=== PATIENT | female | born 1945 | race Caucasian/White ===

== ENCOUNTER → 2017-10-30 | Outpatient (CLI) | payer MEDICARE, OTHER | END | disposition home or self-care (01) | LOC: MMGSC 15:50 | PROVIDERS: ATTEND Family Medicine | DX: E03.9 Hypothyroidism, unspecified (principal) | CPT/HCPCS: 36415; 84439; 84443 ==

== ENCOUNTER → 2018-01-14 | Outpatient (CLI) | payer MEDICARE, OTHER | END | disposition home or self-care (01) | LOC: MMGSC 15:07 | PROVIDERS: ATTEND Family Medicine | DX: N39.0 Urinary tract infection, site not specified (principal) | CPT/HCPCS: 87077; 87086; 87186 ==

== ENCOUNTER → 2019-08-05 | Outpatient (CLI) | payer MEDICARE, OTHER ==
--- NOTE | 2019-08-05 22:35 | MR ---
MRI CERVICAL SPINE: CLINICAL HISTORY: Cervical radiculopathy per order. Headache with neck pain and numbness causing pain or weakness into left arm and fingers with history of prior surgery per patient. TECHNIQUE: Multiplanar, multisequence imaging of the cervical spine is performed without and with IV contrast, 6 cc of gadolinium was given intravenously. COMPARISON: None. FINDINGS: Sagittal images of the cervical spine show the craniocervical junction to appear within nor mal limits. The cervical and upper thoracic spinal cord is normal in course, caliber, and signal. Th ere is artifact from prior fusion surgery C5-C7 levels with grade 1 anterolisthesis C7 on T1. There i s mild to moderate disc space narrowing most prominent posteriorly C7-T1 level. There is prominent an terior inferior spur C4 vertebra. The vertebral body heights are normal. The bone marrow signal int ensity is within normal limits. No suspicious enhancement is seen. Dextroconvex scoliotic curvature c entered upper thoracic spine is present on coronal images. There are small posterior disc herniations in the upper thoracic spine on sagittal images 6 and 7 noted. Axial images at the C2-C3 level is felt within normal limits. Axial images at the C3-C4 level show uncovertebral facet degenerative changes with broad-based centra l disc protrusion effacing the anterior thecal sac, there is mild to moderate left greater than right bilateral neural foraminal narrowing. Axial images at C4-C5 level showed broad based left paracentral disc protrusion and uncovertebral fac et degenerative changes with effacement of the left anterolateral thecal sac and asymmetric moderate left-sided neural foraminal narrowing. Axial images at the C5-C6 level show artifact from surgical change otherwise focus within normal limi ts. Axial images at the C6-C7 level show mild right greater than left bilateral neural foraminal narrowin g. Artifact from surgical change. Axial images at the C7-T1 level show spondylolisthesis with left paracentral disc protrusion effacing anterolateral thecal sac and artifact from surgical change otherwise are felt within normal limits. IMPRESSION: Postsurgical changes C5-C7 level. C7-T1 spondylolisthesis and degenerative change. Additi onal multilevel degenerative changes as detailed above.
== END | disposition home or self-care (01) ==
LOC: RADMRIMAIN 14:58
PROVIDERS: ATTEND Family Medicine
DX: M43.13 Spondylolisthesis, cervicothoracic region (principal); M47.23 Other spondylosis with radiculopathy, cervicothoracic region; M47.22 Other spondylosis with radiculopathy, cervical region; Z98.1 Arthrodesis status
CPT/HCPCS: 72156; A9585

== ENCOUNTER 2022-10-31 11:56 | Emergency (ER) | payer MEDICARE, OTHER ==
[2022-10-31 12:38] VITALS: BP 124/66; PULSE 67; RESP 18; TEMP 97.4
--- NOTE | 2022-10-31 13:22 | US ---
EXAMINATION TYPE: US venous doppler duplex LE LT DATE OF EXAM: 10/31/2022 1:04 PM COMPARISON: NONE CLINICAL HISTORY: 77-year-old female pain/ no injury. pain left leg SIDE PERFORMED: left TECHNIQUE: The lower extremity deep venous system is examined utilizing real time linear array sonog lakisha with graded compression, doppler sonography and color-flow sonography. FINDINGS: VESSELS IMAGED: Common Femoral Vein Deep Femoral Vein Greater Saphenous Vein * Femoral Vein Popliteal Vein Small Saphenous Vein * Proximal Calf Veins (* superficial vessels) Left Leg: no evidence of DVT as visualized IMPRESSION: No evidence for DVT within the left lower extremity imaged from the groin to the upper calf.
== END 2022-10-31 16:30 | disposition left against medical advice (07) ==
LOC: EC 11:56
DX: Z53.21 Procedure and treatment not carried out due to patient leaving prior to being seen by health care provider (principal)
CPT/HCPCS: 99499

== ENCOUNTER 2024-08-31 17:18 | Emergency (ER) | payer MEDICARE ==
[2024-08-31 17:29] VITALS: RESP 18
--- NOTE | 2024-08-31 17:31 | ED ---
General Adult HPI - General Chief complaint: ENT Stated complaint: SOB Source: patient Mode of arrival: ambulatory Limitations: no limitations - History of Present Illness Initial comments: 79-year-old female presenting with chief complaint of "I just do not feel well". The last week she has been having chills, body aches, and a sore throat. She also admits to a nonproductive cough. No chest pain or difficulty breathing. Her voice is very hoarse today. States that she does feel generally weak, but she is still able to ambulate without assistance. No abdominal pain nausea or vomiting. No previous antibiotic therapy - Related Data Home Medications Medication Instructions Recorded Confirmed Albuterol Inhaler [Ventolin Hfa 1 - 2 puff INHALATION RT-Q4H PRN 03/17/22 03/17/22 Inhaler] Aspirin 81 mg PO DAILY@1200 03/17/22 03/17/22 Atorvastatin [Lipitor] 80 mg PO W/SUPPER 03/17/22 03/17/22 Fluticasone Propion/Salmeterol 2 puff INHALATION RT-BID 03/17/22 03/17/22 [Advair Hfa 230-21 Mcg Inhaler] Gabapentin [Neurontin] 300 mg PO DAILY PRN 03/17/22 03/17/22 Levothyroxine Sodium [Synthroid] 100 mcg PO DAILY@0600 03/17/22 03/17/22 Multivitamins, Thera [Multivitamin 1 tab PO DAILY@1200 03/17/22 03/17/22 (formulary)] Nitroglycerin Sl Tabs [Nitrostat] 0.4 mg SUBLINGUAL Q5M PRN 03/17/22 03/17/22 Venlafaxine HCl [Effexor] 75 mg PO DAILY 03/17/22 03/17/22 amLODIPine [Norvasc] 5 mg PO DAILY 03/17/22 03/17/22 clonazePAM [KlonoPIN] 0.5 mg PO HS PRN 03/17/22 03/17/22 Previous Rx's Medication Instructions Recorded Budesonide-Formot 160-4.5 Mcg 2 puff INHALATION RT-BID #1 each 03/19/22 [Symbicort 160-4.5 Mcg Inhaler] Loratadine [Claritin] 10 mg PO DAILY tab 03/19/22 predniSONE 0 mg PO DIRECTED 16 Days #40 tab 03/19/22 Azithromycin [Zithromax Z Pack] 1 tab PO DIRECTED #6 tab 08/31/24 Allergies Allergy/AdvReac Type Severity Reaction Status Date / Time acetaminophen Allergy Rash/Hives Verified 08/31/24 17:29 [From Darvocet-N] Cephalosporins Allergy Rash/Hives Verified 08/31/24 17:29 ciprofloxacin [From Cipro] Allergy Rash/Hives Verified 08/31/24 17:29 codeine Allergy Rash/Hives Verified 08/31/24 17:29 erythromycin base Allergy Rash/Hives Verified 08/31/24 17:29 [From Erythrocin] morphine Allergy Rash/Hives Verified 08/31/24 17:29 Penicillins Allergy Rash/Hives Verified 08/31/24 17:29 propoxyphene Allergy Rash/Hives Verified 08/31/24 17:29 [From Darvocet-N] tetracycline Allergy Rash/Hives Verified 08/31/24 17:29 tolmetin [From Tolectin] Allergy Rash/Hives Verified 08/31/24 17:29 Review of Systems ROS Statement: Those systems with pertinent positive or pertinent negative responses have been documented in the HPI. ROS Other: All systems not noted in ROS Statement are negative. Past Medical History Past Medical History: COPD, Hypertension, Thyroid Disorder Additional Past Medical History / Comment(s): spinal pain History of Any Multi-Drug Resistant Organisms: None Reported Past Surgical History: Back Surgery, Heart Catheterization With Stent Additional Past Surgical History / Comment(s): 5 cardiac stents and 3 illiac stents. 3 CABG. Past Anesthesia/Blood Transfusion Reactions: Unable to Obtain Date of Last Stent Placement:: 2011 Past Psychological History: No Psychological Hx Reported Smoking Status: Never smoker Past Alcohol Use History: None Reported Past Drug Use History: None Reported General Exam - General Exam Comments Initial Comments: Visual Physical Exam Vital signs reviewed General: Well-appearing, nontoxic, no acute distress. Head: Normocephalic, atraumatic Eyes: PERRLA, EOMI ENT: Airway patent Chest: Nonlabored breathing Skin: No visual rash, normal skin tone Neuro: Alert and oriented 3 Musculoskeletal: No gross abnormalities Limitations: no limitations General appearance: alert, in no apparent distress Head exam: Present: atraumatic, normocephalic, normal inspection Eye exam: Present: normal appearance, EOMI Neck exam: Present: normal inspection. Absent: meningismus Respiratory exam: Present: normal lung sounds bilaterally. Absent: respiratory distress, wheezes, rales, rhonchi, stridor Cardiovascular Exam: Present: regular rate, normal rhythm, normal heart sounds. Absent: systolic murmur, diastolic murmur, rubs, gallop, clicks Neurological exam: Present: alert, oriented X3 Psychiatric exam: Present: normal affect, normal mood Skin exam: Present: warm, dry Course Vital Signs 08/31/24 08/31/24 08/31/24 17:25 19:29 20:28 Temperature 97.8 F Pulse Rate 97 78 Respiratory 18 18 18 Rate Blood Pressure 112/73 122/71 O2 Sat by Pulse 97 94 L Oximetry 08/31/24 21:15 Temperature 97.9 F Pulse Rate 89 Respiratory 18 Rate Blood Pressure 122/81 O2 Sat by Pulse 98 Oximetry Medical Decision Making - Medical Decision Making I performed the quick note portion of this visit, electronically signed Krunal Ohcoa PA-C Was pt. sent in by a medical professional or institution ([facility], [facility], urgent care, hospital, or [facility]...) When possible be specific @ -No Did you speak to anyone other than the patient for history (EMS, parent, family, police, friend...)? What history was obtained from this source @ -No Did you review nursing and triage notes (agree or disagree)? Why? @ -I reviewed and agree with nursing and triage notes Were old charts reviewed (outside hosp., previous admission, EMS record, old EKG, old radiological studies, urgent care reports/EKG's, [facility] records)? Report findings @ -No old charts were reviewed Differential Diagnosis (chest pain, altered mental status, abdominal pain women, abdominal pain men, vaginal bleeding, weakness, fever, dyspnea, syncope, headache, dizziness, GI bleed, back pain, seizure, CVA, palpatations, mental health, musculoskeletal)? @ -MDM Differential Weakness: Hypoglycemia, shock, sepsis, hyponatremia, anemia, infection, IL, ETOH, adverse medicine reaction, overdose, stroke. ... This is not meant to be an all- inclusive list EKG interpreted by me (3pts min.). @ -As above X-rays interpreted by me (1pt min.). @ -Chest x-ray shows mild left basilar atelectasis CT interpreted by me (1pt min.). @ -None done U/S interpreted by me (1pt. min.). @ -None done What testing was considered but not performed or refused? (CT, X-rays, U/S, labs)? Why? @ -None What meds were considered but not given or refused? Why? @ -None Did you discuss the management of the patient with other professionals (professionals i.e. , PA, [employer], lab, RT, psych nurse, social media marketing manager, radiation therapist, teacher, affirmative action officer, nurse outreach case manager)? Give summary @ -No Was smoking cessation discussed for >3mins.? @ -No Was critical care preformed (if so, how long)? @ -No Were there social determinants of health that impacted care today? How? (Homelessness, low income, unemployed, alcoholism, drug addiction, transportation, low edu. Level, literacy, decrease access to med. care, longterm, rehab)? @ -No Was there de-escalation of care discussed even if they declined (Discuss DNR or withdrawal of care, Hospice)? DNR status @ -No What co-morbidities impacted this encounter? (DM, HTN, Smoking, COPD, CAD, Cancer, CVA, ARF, Chemo, Hep., AIDS, mental health diagnosis, sleep apnea, morbid obesity)? @ -None Was patient admitted / discharged? Hospital course, mention meds given and route, prescriptions, significant lab abnormalities, going to OR and other pertinent info. @ -79-year-old female presenting with chief complaint of bodyaches sore throat cough congestion and chills. Workup was initiated by me as a quick note protocol and her care was later resumed by me when she was placed in a hallway bed. History and physical examination were conducted. Lab work shows no leukocytosis or anemia. Negative for influenza, RSV, COVID, group A strep. Chest x-ray shows some basilar atelectasis. Urine negative for infection. Patient will be treated for bronchitis with azithromycin. Vital signs are stable. Patient is eager for discharge home. Follow-up with PCP. Report back to ER with any new or worsening symptoms. Discussed return parameters and answered all questions. Patient conveyed verbal understanding and agreed to the plan. I discussed this case in detail with my attending Dr. Marcos Undiagnosed new problem with uncertain prognosis? @ -No Drug Therapy requiring intensive monitoring for toxicity (Heparin, Nitro, Insulin, Cardizem)? @ -No Were any procedures done? @ -No Diagnosis/symptom? @ -Bronchitis Acute, or Chronic, or Acute on Chronic? @ -Acute Uncomplicated (without systemic symptoms) or Complicated (systemic symptoms)? @ -Uncomplicated Side effects of treatment? @ -No Exacerbation, Progression, or Severe Exacerbation? @ -No - Lab Data Result diagrams: 08/31/24 19:12 08/31/24 19:12 Lab Results 08/31/24 08/31/24 08/31/24 Range/Units 19:12 19:12 19:12 WBC 6.6 (3.8-10.6) k/uL RBC 4.80 (3.80-5.40) m/uL Hgb 14.9 (11.4-16.0) gm/dL Hct 45.8 (34.0-46.0) % MCV 95.4 (80.0-100.0) fL MCH 31.0 (25.0-35.0) pg MCHC 32.5 (31.0-37.0) g/dL RDW 12.9 (11.5-15.5) % Plt Count 314 (150-450) k/uL MPV 6.9 Neutrophils % 57 % Lymphocytes % 26 % Monocytes % 12 % Eosinophils % 2 % Basophils % 0 % Neutrophils # 3.7 (1.3-7.7) k/uL Lymphocytes # 1.7 (1.0-4.8) k/uL Monocytes # 0.8 (0-1.0) k/uL Eosinophils # 0.1 (0-0.7) k/uL Basophils # 0.0 (0-0.2) k/uL Sodium 136 L (137-145) mmol/L Potassium 3.5 (3.5-5.1) mmol/L Chloride 105 (98-107) mmol/L Carbon Dioxide 22 (22-30) mmol/L Anion Gap 9 mmol/L BUN 9 (7-17) mg/dL Creatinine 0.66 (0.52-1.04) mg/dL Est GFR (CKD-EPI)AfAm >90 (>60 ml/min/1.73 sqM) Est GFR (CKD-EPI)NonAf 86 (>60 ml/min/1.73 sqM) Glucose 100 H (74-99) mg/dL Calcium 9.5 (8.4-10.2) mg/dL Magnesium 1.9 (1.6-2.3) mg/dL Total Bilirubin 0.7 (0.2-1.3) mg/dL AST 37 H (14-36) U/L ALT 25 (4-34) U/L Alkaline Phosphatase 106 (38-126) U/L Total Protein 6.4 (6.3-8.2) g/dL Albumin 4.1 (3.5-5.0) g/dL Urine Color Urine Appearance (Clear) Urine pH (5.0-8.0) Ur Specific [place] (1.001-1.035) Urine Protein (Negative) Urine Glucose (UA) (Negative) Urine Ketones (Negative) Urine Blood (Negative) Urine Nitrite (Negative) Urine Bilirubin (Negative) Urine Urobilinogen (<2.0) mg/dL Ur Leukocyte Esterase (Negative) Urine RBC (0-5) /hpf Urine WBC (0-5) /hpf Urine Mucus (None) /hpf Influenza Type A (PCR) (Not Detectd) Influenza Type B (PCR) (Not Detectd) RSV (PCR) (Not Detectd) SARS-CoV-2 (PCR) (Not Detectd) Group A Strep (PCR) NOT DETECTED (Not Detectd) 08/31/24 08/31/24 Range/Units 19:12 19:26 WBC (3.8-10.6) k/uL RBC (3.80-5.40) m/uL Hgb (11.4-16.0) gm/dL Hct (34.0-46.0) % MCV (80.0-100.0) fL MCH (25.0-35.0) pg MCHC (31.0-37.0) g/dL RDW (11.5-15.5) % Plt Count (150-450) k/uL MPV Neutrophils % % Lymphocytes % % Monocytes % % Eosinophils % % Basophils % % Neutrophils # (1.3-7.7) k/uL Lymphocytes # (1.0-4.8) k/uL Monocytes # (0-1.0) k/uL Eosinophils # (0-0.7) k/uL Basophils # (0-0.2) k/uL Sodium (137-145) mmol/L Potassium (3.5-5.1) mmol/L Chloride (98-107) mmol/L Carbon Dioxide (22-30) mmol/L Anion Gap mmol/L BUN (7-17) mg/dL Creatinine (0.52-1.04) mg/dL Est GFR (CKD-EPI)AfAm (>60 ml/min/1.73 sqM) Est GFR (CKD-EPI)NonAf (>60 ml/min/1.73 sqM) Glucose (74-99) mg/dL Calcium (8.4-10.2) mg/dL Magnesium (1.6-2.3) mg/dL Total Bilirubin (0.2-1.3) mg/dL AST (14-36) U/L ALT (4-34) U/L Alkaline Phosphatase (38-126) U/L Total Protein (6.3-8.2) g/dL Albumin (3.5-5.0) g/dL Urine Color Yellow Urine Appearance Clear (Clear) Urine pH 5.5 (5.0-8.0) Ur Specific [place] 1.019 (1.001-1.035) Urine Protein Trace H (Negative) Urine Glucose (UA) Negative (Negative) Urine Ketones Trace H (Negative) Urine Blood Trace H (Negative) Urine Nitrite Negative (Negative) Urine Bilirubin Negative (Negative) Urine Urobilinogen 2.0 (<2.0) mg/dL Ur Leukocyte Esterase Negative (Negative) Urine RBC 3 (0-5) /hpf Urine WBC 2 (0-5) /hpf Urine Mucus Occasional H (None) /hpf Influenza Type A (PCR) Not Detected (Not Detectd) Influenza Type B (PCR) Not Detected (Not Detectd) RSV (PCR) Not Detected (Not Detectd) SARS-CoV-2 (PCR) Not Detected (Not Detectd) Group A Strep (PCR) (Not Detectd) Disposition Clinical Impression: Bronchitis Disposition: HOME SELF-CARE Condition: Good Instructions (If sedation given, give patient instructions): Acute Bronchitis (ED) Additional Instructions: Follow-up with your PCP. Report back to ER with any new or worsening symptoms. Prescriptions: Azithromycin [Zithromax Z Pack] 1 tab PO DIRECTED #6 tab Is patient prescribed a controlled substance at d/c from ED?: No Referrals: Apolonia Irvin MD [Primary Care Provider] - 1-2 days Time of Disposition: 20:49
--- NOTE | 2024-08-31 19:27 | XR ---
EXAMINATION TYPE: XR chest 2V DATE OF EXAM: 08/31/2024 COMPARISON: 03/17/2022 INDICATION: Cough TECHNIQUE: Frontal and lateral views of the chest are obtained. FINDINGS: The heart size is normal. The pulmonary vasculature is normal. Some mild atelectasis at the left diaphragm. Sternotomy wires are in the midline. Scoliosis is within the thoracic spine. IMPRESSION: 1. Mild left basilar atelectasis [facility], Workstation: [facility], 08/31/2024 7:25 PM
[2024-08-31 19:33] LABS: Basophils % (A) 0 %; Eosinophils # (A) 0.1 k/uL (0-0.7); Eosinophils % (A) 2 %; HCT 45.8 % (34.0-46.0); HGB 14.9 gm/dL (11.4-16.0); Lymphocytes # (A) 1.7 k/uL (1.0-4.8); Lymphocytes % (A) 26 %; MCHC 32.5 g/dL (31.0-37.0); MCV 95.4 fL (80.0-100.0); Mean Platelet Volume 6.9; Monocytes # (A) 0.8 k/uL (0-1.0); Monocytes % (A) 12 %; Neutrophils # (A) 3.7 k/uL (1.3-7.7); Neutrophils % (A) 57 %; Platelet Count 314 k/uL (150-450); RDW 12.9 % (11.5-15.5); WBC 6.6 k/uL (3.8-10.6)
[2024-08-31 19:49] LABS: ALT 25 U/L (4-34); AST 37 U/L (14-36); African American GFR (CKD) >90 (>60 ml/min/1.73 sqM); Albumin 4.1 g/dL (3.5-5.0); Alkaline Phosphatase 106 U/L (38-126); Anion Gap 9 mmol/L; Blood Urea Nitrogen 9 mg/dL (7-17); Calcium 9.5 mg/dL (8.4-10.2); Carbon Dioxide 22 mmol/L (22-30); Chloride 105 mmol/L (98-107); Glucose 100 mg/dL (74-99); Magnesium 1.9 mg/dL (1.6-2.3); Non-African American GFR(CKD) 86 (>60 ml/min/1.73 sqM); Potassium 3.5 mmol/L (3.5-5.1); Sodium 136 mmol/L (137-145); Total Bilirubin 0.7 mg/dL (0.2-1.3); Total Protein 6.4 g/dL (6.3-8.2)
[2024-08-31 19:54] LABS: Appearance,Urine Clear (Clear); Bilirubin,Urine Negative (Negative); Blood,Urine Trace (Negative); Color,Urine Yellow; Glucose,Urine (UA) Negative (Negative); Ketones,Urine Trace (Negative); Leukocyte Esterase,Urine Negative (Negative); Mucus,Urine Occasional /hpf; Nitrite,Urine Negative (Negative); PH, Urine 5.5 (5.0-8.0); Protein,Urine Trace (Negative); RBC,Urine 3 /hpf (0-5); Specific Gravity,Urine 1.019 (1.001-1.035); WBC,Urine 2 /hpf (0-5)
[2024-08-31 21:17] VITALS: BP 122/81; PULSE 89; TEMP 97.9
== END 2024-08-31 21:17 | disposition home or self-care (01) ==
LOC: EC 17:18
CPT/HCPCS: 36415; 71046; 80053; 81001; 83735; 85025; 87636; 87651; 93005; 99285